=== PATIENT | male | born 1995 | race Caucasian/White ===

== ENCOUNTER 2019-09-03 21:08 | Emergency (ER) | payer OTHER ==
[2019-09-03 21:14] VITALS: RESP 18
[2019-09-03] MEDS ORDERED: KETOROLAC 30 MG/ML 1 ML VIAL IVP STA (21:31)
--- NOTE | 2019-09-03 21:36 | ED ---
Chest Pain HPI - General Chief Complaint: Chest Pain Stated Complaint: Chest pain Time Seen by Provider: 09/03/19 21:19 Source: patient, family, RN notes reviewed Mode of arrival: ambulatory Limitations: no limitations - History of Present Illness Initial Comments: This is a 25-year-old male with a benign history who states he started developing chest pain earlier today. Sharp severe nature across from his chest no fevers chills nausea vomiting sweats no abdominal pain. Patient does have a history of vaping which she does do daily. He also is drinking alcohol today. No trauma no coughingsneezing no precipitating factors no heavy lifting. No heart disease is noted no heart lung disease known as any abdominal pain MD Complaint: chest pain - Related Data Previous Rx's Medication Instructions Recorded Ibuprofen 800 mg PO Q6HR PRN #20 tablet 09/03/19 Allergies Allergy/AdvReac Type Severity Reaction Status Date / Time No Known Allergies Allergy Verified 09/03/19 21:14 Review of Systems ROS Statement: Those systems with pertinent positive or pertinent negative responses have been documented in the HPI. ROS Other: All systems not noted in ROS Statement are negative. EKG Findings - EKG Results: EKG: interpreted by ABILIO, sinus rhythm (Sinus rhythm of 98. Interval 132 QRS duration 96 QT since QTC 344/439 and complete right bundle-branch block no acute ST-T wave changes) Past Medical History Past Medical History: Asthma History of Any Multi-Drug Resistant Organisms: None Reported Past Surgical History: No Surgical Hx Reported Past Psychological History: No Psychological Hx Reported Smoking Status: Current every day smoker Past Alcohol Use History: Occasional Past Drug Use History: Marijuana General Exam - General Exam Comments Initial Comments: This is a well-developed well-nourished awake alert oriented times female he does have the smell of alcohol conjoiners on his breath Limitations: no limitations General appearance: alert, appears intoxicated, anxious, in distress Head exam: Present: atraumatic, normocephalic, normal inspection Eye exam: Present: normal appearance, PERRL, EOMI. Absent: scleral icterus, conjunctival injection, periorbital swelling ENT exam: Present: normal exam, mucous membranes moist Neck exam: Present: normal inspection. Absent: tenderness, meningismus, lymphadenopathy Respiratory exam: Present: normal lung sounds bilaterally, chest wall tenderness (Reproducible tenderness palpation along the anterior chest wall no step-off or crepitation). Absent: respiratory distress, wheezes, rales, rhonchi, stridor Cardiovascular Exam: Present: normal rhythm, tachycardia, normal heart sounds. Absent: systolic murmur, diastolic murmur, rubs, gallop, clicks GI/Abdominal exam: Present: soft, normal bowel sounds. Absent: distended, tenderness, guarding, rebound, rigid Extremities exam: Present: normal inspection, full ROM, normal capillary refill. Absent: tenderness, pedal edema, joint swelling, calf tenderness Back exam: Present: normal inspection Neurological exam: Present: alert, oriented X3, CN II-XII intact Psychiatric exam: Present: normal affect, normal mood Skin exam: Present: warm, dry, intact, normal color. Absent: rash Course Vital Signs 09/03/19 21:10 Temperature 98 F Pulse Rate 111 H Respiratory 18 Rate Blood Pressure 151/89 O2 Sat by Pulse 98 Oximetry Chest Pain MDM - MDM I did review the imaging and report no acute findings. Patient did get relief from the IV Toradol he is resting comfortably his family is here he'll go home with them. Per his mother he did not drink much alcohol tonight supposedly. The presentation is consistent with chest wall pain/costochondritis he will be discharged with appropriate anti-inflammatories. Disposition Clinical Impression: Costochondritis, Chest wall syndrome Disposition: HOME SELF-CARE Condition: Good Instructions (If sedation given, give patient instructions): Costochondritis (ED) Prescriptions: Ibuprofen 800 mg PO Q6HR PRN #20 tablet PRN Reason: Pain Is patient prescribed a controlled substance at d/c from ED?: No Referrals: None,Stated [Primary Care Provider] - 1-2 days
--- NOTE | 2019-09-03 22:11 | XR ---
EXAMINATION TYPE: XR chest 2V DATE OF EXAM: 09/03/2019 COMPARISON: 03/15/2006 HISTORY: Chest pain TECHNIQUE: FINDINGS: Heart and mediastinum are normal. Lungs are clear. Diaphragm is normal. Bony thorax appears normal. IMPRESSION: Normal chest. No adverse change.
[2019-09-03 22:20] LABS: Basophils % (A) 1 %; Eosinophils # (A) 0.2 k/uL (0-0.7); Eosinophils % (A) 2 %; HCT 49.1 % (39.0-53.0); HGB 16.1 gm/dL (13.0-17.5); Lymphocytes # (A) 2.1 k/uL (1.0-4.8); Lymphocytes % (A) 30 %; MCH 31.5 pg (25.0-35.0); MCHC 32.9 g/dL (31.0-37.0); MCV 95.9 fL (80.0-100.0); Mean Platelet Volume 7.3; Monocytes # (A) 0.3 k/uL (0-1.0); Monocytes % (A) 4 %; Neutrophils % (A) 58 %; Platelet Count 209 k/uL (150-450); RBC 5.12 m/uL (4.30-5.90); RDW 13.2 % (11.5-15.5); WBC 6.9 k/uL (3.8-10.6)
[2019-09-03 22:25] LABS: D-Dimer 0.41 mg/L FEU (<0.60); Partial Thromboplastin Time 25.5 sec (22.0-30.0); Prothrombin Time 10.1 sec (9.0-12.0)
[2019-09-03 22:45] LABS: ALT 20 U/L (4-49); AST 31 U/L (17-59); African American GFR (CKD) >90 (>60 ml/min/1.73 sqM); Albumin 4.8 g/dL (3.5-5.0); Alkaline Phosphatase 71 U/L (38-126); Anion Gap 12 mmol/L; Blood Urea Nitrogen 10 mg/dL (9-20); Calcium 9.1 mg/dL (8.4-10.2); Carbon Dioxide 27 mmol/L (22-30); Chloride 104 mmol/L (98-107); Glucose 106 mg/dL (74-99); Magnesium 2.2 mg/dL (1.6-2.3); Non-African American GFR(CKD) >90 (>60 ml/min/1.73 sqM); Potassium 4.2 mmol/L (3.5-5.1); Sodium 143 mmol/L (137-145); Total Bilirubin 0.4 mg/dL (0.2-1.3); Total Protein 7.9 g/dL (6.3-8.2)
[2019-09-03 23:11] LABS: Alcohol 335 mg/dL
[2019-09-03 23:40] VITALS: BP 126/68; PULSE 82; TEMP 97.9
== END 2019-09-03 23:41 | disposition home or self-care (01) ==
LOC: EC 21:08
DX: M94.0 Chondrocostal junction syndrome [Tietze] (principal); F17.200 Nicotine dependence, unspecified, uncomplicated
CPT/HCPCS: 99285; 96374; 36415; 93005; 85379; 83880; 80053; 83690; 83735; 84484; 85025; 85610; 85730; 80320; 71046; J1885

== ENCOUNTER 2020-01-19 22:24 | Emergency (ER) | payer OTHER ==
[2020-01-19] MEDS ORDERED: MORPHINE SULFATE 4 MG/ML SYRINGE IV STA (23:13)
[2020-01-20 00:02] LABS: Basophils % (A) 1 %; Eosinophils # (A) 0.2 k/uL (0-0.7); Eosinophils % (A) 4 %; HCT 46.3 % (39.0-53.0); HGB 15.6 gm/dL (13.0-17.5); Lymphocytes # (A) 2.3 k/uL (1.0-4.8); Lymphocytes % (A) 39 %; MCHC 33.6 g/dL (31.0-37.0); MCV 95.2 fL (80.0-100.0); Mean Platelet Volume 6.9; Monocytes # (A) 0.3 k/uL (0-1.0); Monocytes % (A) 5 %; Neutrophils # (A) 2.9 k/uL (1.3-7.7); Neutrophils % (A) 50 %; Platelet Count 198 k/uL (150-450); RBC 4.86 m/uL (4.30-5.90); WBC 5.9 k/uL (3.8-10.6)
[2020-01-20 00:05] LABS: Appearance,Urine Clear (Clear); Bilirubin,Urine Negative (Negative); Blood,Urine Negative (Negative); Color,Urine Colorless; Glucose,Urine (UA) Negative (Negative); Ketones,Urine Negative (Negative); Leukocyte Esterase,Urine Negative (Negative); Nitrite,Urine Negative (Negative); PH, Urine 5.5 (5.0-8.0); Protein,Urine Negative (Negative); Specific Gravity,Urine 1.002 (1.001-1.035); Urobilinogen,Urine <2.0 mg/dL (<2.0)
[2020-01-20 00:16] LABS: ALT 21 U/L (4-49); AST 40 U/L (17-59); African American GFR (CKD) >90 (>60 ml/min/1.73 sqM); Albumin 4.9 g/dL (3.5-5.0); Alkaline Phosphatase 62 U/L (38-126); Anion Gap 10 mmol/L; Blood Urea Nitrogen 13 mg/dL (9-20); Carbon Dioxide 24 mmol/L (22-30); Chloride 107 mmol/L (98-107); Glucose 107 mg/dL (74-99); Non-African American GFR(CKD) >90 (>60 ml/min/1.73 sqM); Potassium 3.9 mmol/L (3.5-5.1); Sodium 141 mmol/L (137-145); Total Bilirubin 0.6 mg/dL (0.2-1.3); Total Protein 7.6 g/dL (6.3-8.2)
[2020-01-20 00:27] VITALS: BP 101/68; PULSE 87; RESP 16; TEMP 97.9
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
== END 2020-01-20 00:50 | disposition home or self-care (01) ==
LOC: EC 22:24
DX: S29.9XXA Unspecified injury of thorax, initial encounter (principal); R10.812 Left upper quadrant abdominal tenderness; F17.290 Nicotine dependence, other tobacco product, uncomplicated; V29.9XXA Motorcycle rider (driver) (passenger) injured in unspecified traffic accident, initial encounter; Y93.55 Activity, bike riding
CPT/HCPCS: 36415; 80053; 83605; 85025; 81003; 74177; 99284; 96374; J2270; Q9967